=== PATIENT | male | born 1960 | race African-American/Black ===

== ENCOUNTER 2019-03-23 07:14 | Emergency (ER) | payer BC ==
[~2019-03-23] VITALS: Ht 190.5 cm; Wt 84.0 kg
[~2019-03-23 07:14] MED LIST: ADVIR; PROVENTIL
[2019-03-23] MEDS ORDERED: LIDOCAINE 1%/EPI 1:100,000 10 ML VIAL IJ ONE (07:45)
[2019-03-23] MEDS ORDERED: LIDOCAINE HCL/PF 1% 10 MG/ML 5ML VIAL IJ ONE ×2 (07:45→10:00)
[2019-03-23] MEDS ORDERED: HYDROCODONE/ACETAMINOPHEN 5/325MG TABLET PO ONE (07:45)
[2019-03-23] MEDS ORDERED: TETANUS, DIPHTHERIA, PERTUSSIS VAC/PF 0.5ML (>7YR OLD) IM ONE (07:45)
[2019-03-23] MEDS ORDERED: BACITRACIN ZINC OINT UDPKT TOP ONE (07:45)
[2019-03-23] MEDS ORDERED: IBUPROFEN 600MG TABLET PO ONE (07:45)
[2019-03-23] MEDS ORDERED: CEFTRIAXONE SODIUM 1 G/VIAL IM ONE (09:45)
[2019-03-23] MEDS ORDERED: LIDOCAINE HCL/PF 1% 2ML VIAL INFIL ONE (09:45)
[2019-03-23] MEDS ORDERED: LIDOCAINE HCL/EPINEPHRINE 1%-EPI 1:100,000 20 ML VIAL ONE (10:01)
[2019-03-23] MEDS ORDERED: BACITRACIN 15GM TUBE TOP ONE (11:30)
[2019-03-23 16:48] VITALS: BP 149/80
== END 2019-03-23 16:50 | disposition home or self-care (01) ==
LOC: ER 07:37
DX: S52.691A Other fracture of lower end of right ulna, initial encounter for closed fracture (principal); S01.01XA Laceration without foreign body of scalp, initial encounter; F17.200 Nicotine dependence, unspecified, uncomplicated; F41.9 Anxiety disorder, unspecified; Y08.89XA Assault by other specified means, initial encounter; Y93.89 Activity, other specified; Y92.89 Other specified places as the place of occurrence of the external cause; Y99.8 Other external cause status
CPT/HCPCS: 12001; 12014; 70450; 73090; 73110; 73130; 73560; 73590; 90471; 90715; 96372; 99284; A4217; J0696; J3490; Z7610